=== PATIENT | male | born 1960 ===

== ENCOUNTER 2024-10-25 07:42 | Observation (INO) | payer OTHER ==
[~2024-10-25] VITALS: Ht 177.8 cm; Wt 101.0 kg
[~2024-10-25 07:42] MED LIST: ASPI81CH PO; MULVITA PO
[2024-10-25] MEDS ORDERED: THERA-D2000 UNIT PO (08:08)
[2024-10-25] MEDS ORDERED: TAMS.4ER PO (08:08)
[2024-10-25] MEDS ORDERED: METO25ER PO (08:08)
[2024-10-25] MEDS ORDERED: AMLO5 PO (08:08)
[2024-10-25 08:34] LABS: BASOPHILS ABSOLUTE AUTO 0.05 K/mm3 (0.00-0.23); BASOPHILS PERCENT AUTO 1 % (0-2); EOSINOPHILS ABSOLUTE AUTO 0.12 K/mm3 (0.00-0.68); EOSINOPHILS PERCENT AUTO 2 % (0-6); Hematocrit 45.3 % (37.0-53.0); Hemoglobin 15.4 g/dL (13.5-17.5); IMMATURE GRAN ABSOLUTE AUTO 0.02 K/mm3 (0.00-0.10); IMMATURE GRAN PERCENT AUTO 0 % (0-1); LYMPHOCYTES ABSOLUTE AUTO 1.58 K/mm3 (0.84-5.20); LYMPHOCYTES PERCENT AUTO 25 % (21-46); MONOCYTES ABSOLUTE AUTO 0.83 K/mm3 (0.16-1.47); MONOCYTES PERCENT AUTO 13 % (4-13); Mean Corpuscular HGB Conc 34.0 g/dL (31.5-36.5); Mean Corpuscular Volume 93 fL (80-100); NEUTROPHILS ABSOLUTE AUTO 3.75 K/mm3 (1.96-9.15); NEUTROPHILS PERCENT AUTO 59 % (41-73); NRBC ABSOLUTE 0.00 K/mm3 (0.00-0.02); NRBC Auto 0.0 /100 WBC (0.0-0.2); Platelet Count 259 K/mm3 (150-400); RDW Coefficient Variation 12.5 % (11.7-14.2); RDW Standard Deviation 42.8 fL (35.1-46.3)
[2024-10-25 08:57] LABS: Alanine Aminotransfer (ALT/SGP 34.0 U/L (12-78); Albumin, Blood 3.8 g/dL (3.4-5.0); Albumin/Globulin Ratio 1.0 (0.8-1.8); Anion Gap 7.0 mmol/L (3-11); Aspartate Aminotrans (AST/SGOT 24.0 U/L (12-37); Bilirubin, Total 0.7 mg/dL (0.1-1.0); Blood Urea Nitrogen 13.0 mg/dL (8-24); CO2, Blood 26.0 mmol/L (21-32); Calcium, Blood 8.8 mg/dL (8.5-10.1); Chloride, Blood 109.0 mmol/L (98-108); Creatinine, Blood 0.95 mg/dL (0.60-1.20); Globulin, Blood 3.8 g/dL (2.2-4.0); Glucose, Blood 100.0 mg/dL (70-99); Potassium, Blood 3.8 mmol/L (3.5-5.5); Sodium, Blood 138.0 mmol/L (136-145); Total Protein, Blood 7.6 g/dL (6.4-8.2)
[2024-10-25] MEDS ORDERED: Magnesium Hydroxide Conc 10 ML UDC PO PRN (11:15)
[2024-10-25] MEDS ORDERED: Multivitamins 1 Tab PO SCH (11:15)
[2024-10-25] MEDS ORDERED: Ondansetron HCl 2 MG / ML 2ML Vial IV PRN (11:15)
[2024-10-25 12:42] VITALS: BP 163/100
--- NOTE | 2024-10-25 13:03 | NUR ---
ADMISSION NOTE: PATIENT ARRIVES TO ROOM VIA WC AT 1240 FROM ER FOR DX'S OF CP. PATIENT TRANSFERRED TO BED INDEPENDENTLY, STABLE GAIT. ADMISSION, MEDRIC AND SKIN ASSESSMENT c 2 RN'S VERIFIED COMPLETED. PATIENT A/OX4, ANSWER TO QUESTIONS APPROPRIATELY. PATIENT DENIES CP/PRESSURE, N/V, DIZZINESS, SOB AND NUMBNESS AND TINGLING. PATIENT SENSATIONS INTACT AND STRENGTH ARE EQUAL TO ALL EXTREMITIES. PATIENT ORIENTATED TO ROOM AND CALL SYSTEM. PATIENT LEFT THE ROOM AT 1303 TO IMAGING.
[2024-10-25 16:23] VITALS: BP 137/94
--- NOTE | 2024-10-25 17:21 | NUR ---
SHIFT SUMMARY: PATIENT REPORTS HAD A COUPLE EPISODE OF STABBING PAIN TO L SIDE CHEST THAT COMES AND GOES SINCE ADMITTED TO UNIT. PATIENT ON TELE, SB/SR HR IN THE MID 50'S TO MID 60'S BPM. PATIENT HAD HIS 1ST PART OF STRESS TEST IN ER, 2ND PART WILL BE TOMORROW, NPO AT NC, NO CAFFIENE OR DECAF AFTER 1900 PER [facility] MED TECH. PATIENT TOLERATING PO WELL, CONTINENT OF BLADDER AND AMBULATES TO BATHROOM INDEPENDENTLY. PATIENT RESTING IN BED c FAMILY AT BEDSIDE VISITING. VITAL SIGNS REVIEWED. CALL LIGHT IN REACH.
[2024-10-25 19:55] VITALS: BP 150/94
[2024-10-25 21:45] VITALS: BP 139/92
[2024-10-26 01:44] VITALS: BP 118/85
[2024-10-26 06:22] VITALS: BP 120/77
--- NOTE | 2024-10-26 07:24 | NUR ---
Shift Summary AOx4. Ad santo in the room. C/O occasional short-lived intermittent sharp discomfort to the left lateral side of chest early during the shift. These resolved without any intervention. NPO since midnight except for some meds with sips of water, abstained from drinking/eating anything caffeinated. PO night meds were given at the start of shift. Patient reports taking 0.8mg of flomax once at bedtime AND also states that he takes his norvasc specifically at 1330 for optimized blood pressure control. Home med rec updated to reflect these changes.
[2024-10-26 07:28] VITALS: BP 131/90
[2024-10-26] MEDS ORDERED: Cholecalciferol 1000 Unit Tablet (=25MCG) PO SCH (09:00)
[2024-10-26] MEDS ORDERED: Enoxaparin 40 MG/0.4 ML SYR SC SCH (09:00)
[2024-10-26 11:38] VITALS: BP 132/88
--- NOTE | 2024-10-26 17:04 | NUR ---
SHIFT/DISCHARGE SUMMARY: PATIENT A/OX4, PLEASANT AND COOPERATIVE c CARE. PATIENT DENIES CP/PRESSURE, SOB, N/V AND DIZZINESS. PATIENT ON TELE, SB/SR HR IN THE MID 50'S TO LOW 60'S BPM. PATIENT HAD HIS SECOND PART OF STRESS TEST COMPLETED TODAY. DR. SMILEY CAME IN ROOM AND DISCUSSED THE RESULT c PATIENT AND FAMILY AT BEDSIDE, THEY VERBALIZED UNDERSTANDING AND ALL QUESTIONS WERE ANSWERED. PATIENT RECEIVED SCHEDULED MEDS PER EMAR. VITAL SIGNS REVIEWED. PIV DC'D. PATIENT DISCHARGE HOME. DISCHARGE INSTRUCTIONS PACKET GIVEN TO PATIENT. PATIENT AND SPOUSE EDUCATED ON ADMITITNG DX'S OF CP, S/S, TX AND TO F/U c PCP. PATIENT/SPOUSE VERBALIZED UNDESTANDING AND NO FURTHER QUESTIONS. PATIENT HAS NO NEW RX AND RESUME HOME MEDS PER ORDER. ALL PERSONAL BELONGINGS WERE SENT HOME c PATIENT. PATIENT LEFT THE ROOM AT 1620, TRANSPORTED VIA WC TO PATIENT ENTRANCE BY LEATHA SAUNDERS.
== END 2024-10-26 17:11 | disposition home or self-care (01) ==
LOC: ER 07:42 → MEDS 07:43
PROVIDERS: Emergency Medicine; ADMIT Internal Medicine
DX: R07.89 Other chest pain (principal); I10 Essential (primary) hypertension; Z79.82 Long term (current) use of aspirin; Z79.899 Other long term (current) drug therapy
CPT/HCPCS: 36415; 71045; 78452; 80053; 84484; 85025; 93005; 93010; 93017; 96372; A9270; A9500; G0378; J0706; J1650; J2785